=== PATIENT | female | born 1985 | race African-American/Black ===

== ENCOUNTER 2017-03-05 13:53 | Emergency (ER) | payer MEDICAID | END 2017-03-05 18:33 | disposition home or self-care (01) | LOC: D.ER 13:53 | DX: S60.222A Contusion of left hand, initial encounter (principal); W19.XXXA Unspecified fall, initial encounter ==

== ENCOUNTER 2017-03-14 18:37 | Emergency (ER) | payer MEDICAID ==
[2017-03-14 21:33] LABS: APPEARANCE HAZY (CLEAR); BILIRUBIN NEGATIVE (NEGATIVE); COLOR RED (YELLOW); GLUCOSE NEGATIVE (NEGATIVE); KETONE NEGATIVE (NEGATIVE); LEUKOCYTE ESTERASE NEGATIVE (NEGATIVE); NITRITE NEGATIVE (NEGATIVE); PROTEIN 1+ mg/dL (NEGATIVE); SPECIFIC GRAVITY 1.015 (1.005-1.020); UROBILINOGEN NORMAL (NORMAL)
[2017-03-14 21:35] LABS: BACTERIA FEW /hpf (NONE SEEN); EPITHELIAL CELLS 0-5 /hpf (0-5); RED CELLS - URINE >50 /hpf (0-5); WHITE CELLS - URINE 0-5 /hpf (0-5)
[2017-03-14 22:00] LABS: HCG URINE NEGATIVE (NEGATIVE)
== END 2017-03-14 22:24 | disposition home or self-care (01) ==
LOC: D.ER 18:37
PROVIDERS: Nurse Practitioner Family
DX: R51 Headache (principal); N94.6 Dysmenorrhea, unspecified; F31.89 Other bipolar disorder